=== PATIENT | female | born 1965 | race Two or more races ===

== ENCOUNTER 2016-10-15 03:22 | Inpatient (IN) | payer MEDICAID ==
[~2016-10-15] VITALS: Ht 170.2 cm; Wt 99.5 kg
[2016-10-15] MEDS ORDERED: ONDANSETRON HCL/PF 4 MG/2 ML VIAL IVP PRN (04:00)
[2016-10-15] MEDS ORDERED: MAGNESIUM HYDROXIDE 30 ML UDC PO PRN (04:00)
[2016-10-15] MEDS ORDERED: MAG HYDROX/AL HYDROX/SIMETH 30 ML UDC PO PRN (04:00)
[2016-10-15] MEDS ORDERED: ZOLPIDEM TARTRATE 5 MG TABLET PO PRN (04:00)
[2016-10-15] MEDS ORDERED: Z GUARD REMEDY 2 OZ OINT TP PRN (04:00)
--- NOTE | 2016-10-15 05:35 | NUR ---
MS/RN NOTES RECEIVED PT. DIRECT ADMISSION FROM [facility] VIA [facility]. PT. IS AWAKE, ALERT AND ORIENTED X3. BREATHING EVEN AND UNLABORED ON ROOM AIR. NO SOB OR RESPIRATORY DISTRESS NOTED AT THIS TIME. PT. COMPLAINING OF ABDOMINAL PAIN 10/13. ORIENTED PT. TO ROOM. PT. WITH RIGHT WRIST 22 GAUGE IV SALINE LOCK PRESENT, PATENT AND INTACT. BED IN LOWEST POSITION, CALL LIGHT WITHIN REACH, WILL CONTINUE TO MONITOR.
[2016-10-15 05:36] VITALS: BP 138/71
[2016-10-15] MEDS ORDERED: IV SET PRIMARY PUMP SET 1 EA INFUS.SET MC ONE (06:36)
[2016-10-15] MEDS ORDERED: IV NS 0.9% 1,000 ML ONE (06:36)
[2016-10-15] MEDS: IV NS 0.9% 1,000 ML IV PRN ×2 (06:49→20:57)
--- NOTE | 2016-10-15 07:00 | NUR ---
MS/RN NOTES PT. LYING IN BED RESTING. BREATHING EVEN AND UNLABORED ON ROOM AIR. NO SOB OR RESPIRATORY DISTRESS NOTED AT THIS TIME OR S/S OF PAIN NOTED AT THIS TIME. PT. WITH RIGHT WRIST 22 GAUGE PERIPHERAL IV PRESENT, PATENT AND INTACT ADMINISTERING TO PT. NS @ 100ML/HR. ALL PT. NEEDS MET. BED IN LOWEST POSITION, CALL LIGHT WITHIN REACH, WILL ENDORSE TO DAYSHIFT NURSE FOR CONTINUITY OF CARE.
[2016-10-15 07:15] LABS: BASOPHILS % (AUTO) 0.2 % (0.0-2.0); EOSINOPHILS % (AUTO) 0.3 % (0.0-6.0); HEMATOCRIT 41 % (33-45); HEMOGLOBIN 13.9 g/dL (11.5-14.8); LYMPHOCYTES # (AUTO) 1.7 /CMM (0.8-4.8); LYMPHOCYTES % (AUTO) 11.9 % (20.0-44.0); MEAN CORPUSCULAR HEMOGLOBIN 29 PG (26.0-33.0); MEAN CORPUSCULAR HGB CONC 34 g/dl (31.0-36.0); MEAN CORPUSCULAR VOLUME 86 fL (82-100); MONOCYTES # (AUTO) 0.6 /CMM (0.1-1.30); MONOCYTES % (AUTO) 4.1 % (2.0-12.0); NEUTROPHILS # (AUTO) 11.9 /CMM (1.8-8.9); NEUTROPHILS % (AUTO) 83.5 % (43.0-81.0); PLATELET COUNT (AUTO) 206 /CMM (150-450); RDW COEFFICIENT OF VARIATION 13.9 (11.5-15.0); WHITE BLOOD COUNT (AUTO) 14.3 K/uL (4.3-11.0)
[2016-10-15 07:44] LABS: ALBUMIN 3.5 g/dL (3.4-5.0); BILIRUBIN,TOTAL 0.3 mg/dL (0.2-1.0); CALCIUM, SERUM 8.9 mg/dL (8.5-10.1); CREATININE 0.6 mg/dL (0.6-1.3); MAGNESIUM 1.8 mg/dL (1.8-2.4); PHOSPHORUS 5.5 mg/dL (2.5-4.9); TOTAL PROTEIN, SERUM 7.9 g/dL (6.4-8.2)
[2016-10-15 08:00] VITALS: BP 134/84
--- NOTE | 2016-10-15 08:00 | NUR ---
MS RN RECEIVED ON BED, AWAKE,ALERT,ORIENTED X3,NOT IN ANY FORM OF DISTRESS, RESPIRATIONS EVEN AND UNLABORED,NO SOB NOTED. LUNGS ARE CLEAR, ABDOMEN SOFT,POSITIVE BOWEL SOUNDS, DENIES PAIN AT THIS TIME, WILL MONITOR PATIENT'S CONDITION.
[2016-10-15] MEDS: PANTOPRAZOLE 40 MG VIAL IV SCH (10:02)
[2016-10-15] MEDS: HYDROMORPHONE INJ 2 MG/ML DISP.SYRIN IV PRN ×2 (10:03→20:56)
--- NOTE | 2016-10-15 12:00 | NUR ---
MS WHYTE WAS SEEN BY DR. ARMANDO Galvez/ ORDERS MADE AND CARRIED OUT.
--- NOTE | 2016-10-15 16:00 | NUR ---
MS RN REGULARLY GETTING HER PAIN MEDS AT THIS TIME.ALL NEEDS ATTENDED.
[2016-10-15 16:54] VITALS: BP 134/73
--- NOTE | 2016-10-15 19:23 | NUR ---
MS RN ON BED, ALL NEEDS ATTENDED, NO DISTRESS NOTED.
[2016-10-15 20:00] VITALS: BP 155/91
--- NOTE | 2016-10-15 21:00 | NUR ---
Patient was crying States" the day nurse told me she would bring my pain medicine I told her she came in my room three times and didn't bring my pain like she said she would and she wouldn't come in to help me to restroom. " Reassured pt gave pt lmg of dilaudid ivp tolerated well reassessed in 30 minutes patient was asleep. Pt stated earlier pain is 9/10 and it hurts when she moves." Pt is monitored every hour and prn for safety, pain and other needs. No signs of respiratory distressed noted. Will continue to monitored.
[2016-10-16] MEDS: HYDROCODONE/APAP 5/325MG 1 EACH TABLET PO PRN ×2 (00:21→13:39)
[2016-10-16] MEDS: HYDROMORPHONE INJ 2 MG/ML DISP.SYRIN IV PRN ×3 (02:47→19:40)
--- NOTE | 2016-10-16 07:30 | NUR ---
PATIENT RECEIVED RESTING COMFORTABLY IN BED WITH EYES CLOSED. NO S/S OR C/O PAIN OR DISTRESS NOTED. SIDE RAILS UP X2, CALL LIGHT LEFT WITHIN REACH. WILL CONTINUE PLAN OF CARE.
[2016-10-16 08:00] VITALS: BP 96/54
[2016-10-16] MEDS: PANTOPRAZOLE 40 MG VIAL IV SCH (09:04)
[2016-10-16 09:23] LABS: BASOPHILS % (AUTO) 0.3 % (0.0-2.0); EOSINOPHILS # (AUTO) 0.1 /CMM (0.0-0.7); EOSINOPHILS % (AUTO) 0.5 % (0.0-6.0); HEMATOCRIT 38 % (33-45); HEMOGLOBIN 12.6 g/dL (11.5-14.8); LYMPHOCYTES # (AUTO) 1.6 /CMM (0.8-4.8); LYMPHOCYTES % (AUTO) 14.6 % (20.0-44.0); MEAN CORPUSCULAR HEMOGLOBIN 28 PG (26.0-33.0); MEAN CORPUSCULAR HGB CONC 33 g/dl (31.0-36.0); MEAN CORPUSCULAR VOLUME 86 fL (82-100); MONOCYTES # (AUTO) 0.7 /CMM (0.1-1.30); MONOCYTES % (AUTO) 6.8 % (2.0-12.0); NEUTROPHILS # (AUTO) 8.4 /CMM (1.8-8.9); NEUTROPHILS % (AUTO) 77.8 % (43.0-81.0); PLATELET COUNT (AUTO) 197 /CMM (150-450); RDW COEFFICIENT OF VARIATION 13.6 (11.5-15.0); RED BLOOD CELL COUNT(AUTO) 4.43 MIL/uL (4.0-5.2); WHITE BLOOD COUNT (AUTO) 10.8 K/uL (4.3-11.0)
[2016-10-16 09:43] LABS: ALBUMIN 2.8 g/dL (3.4-5.0); BILIRUBIN,TOTAL 0.5 mg/dL (0.2-1.0); CALCIUM, SERUM 8.7 mg/dL (8.5-10.1); CREATININE 0.5 mg/dL (0.6-1.3); POTASSIUM 3.8 mmol/L (3.5-5.1)
[2016-10-16] MEDS ORDERED: ANESTHESIA TRAY IN PYXIS 1 EA TRAY MC ONE (13:00)
[2016-10-16] MEDS ORDERED: POLYETHYLENE GLYCOL 3350 17 GM POWD.PACK PO ONE (13:30)
--- NOTE | 2016-10-16 13:30 | NUR ---
MED HELD MIRALAX. PT RESTING WITH EYES CLOSED AT THIS TIME.
[2016-10-16 16:00] VITALS: BP 141/49
--- NOTE | 2016-10-16 18:30 | NUR ---
CHANGE OF SHIFT REPORT PT RESTING COMFORTABLY IN BED. NO S/S OR C/O PAIN OR DISTRESS NOTED. SIDE RAILS UP X2, CALL LIGHT LEFT WITHIN REACH. PT KEPT CLEAN, DRY, AND COMFORTABLE. NO SIGNIFICANT CHANGES FROM PREVIOUS SHIFT. WILL GIVE REPORT TO ROSHAN WHYTE.
--- NOTE | 2016-10-16 19:30 | NUR ---
MS RN NOTE RECEIVED PATIENT FROM DAY SHIFT, PATIENT IS ALERT AND ORIENTEDX4, AMBULATORY, NO S/S OF RESPIRATORY DISTRESS AND COMPLAINS OF ABDOMINAL PAIN AT THIS TIME. IV ON RIGHT WRIST IS PATENT AND INTACT, HL. SRX2, BED IN LOW POSITION, WILL CONTINUE TO MONITOR PATIENT.
--- NOTE | 2016-10-16 19:40 | NUR ---
MS RN NOTE GOT A DISCHARGE ORDER FROM DR. ANTOINE MA. PATIENT MADE AWARE, SHE WANTS TO STAY UNTIL TOMORROW AM.
[2016-10-16 20:51] VITALS: BP 117/71
[2016-10-16] MEDS: ACETAMINOPHEN 325 MG TABLET PO PRN (23:26)
--- NOTE | 2016-10-16 23:30 | NUR ---
MS RN NOTE PATIENT VERBALIZED HER CONCERNS ABOUT DISCHARGE TOMORROW AND STATED THAT SHE WANTS TO RESOLVE HER CONSTIPATION(NO BM FOR 5 DAYS) BEFORE SHE LEAVES, OTHERWISE SHE WILL HAVE THE SAME PROBLEMS AGAIN. WILL RELAY TO DAY SHIFT TYLENOL 650MG PO GIVEN FOR HEADACHE.
[2016-10-17] MEDS: HYDROCODONE/APAP 5/325MG 1 EACH TABLET PO PRN (06:28)
--- NOTE | 2016-10-17 06:50 | NUR ---
MS RN NOTE PATIENT IS RESTING IN BED COMFORTABLY, NO S/S OF RESPIRATORY DISTRESS AND COMPLAINS OF HEADACHE, NORCO PO GIVEN. WILL ENDORSE TO DAY SHIFT FOR MINNIE.
[2016-10-17 08:00] VITALS: BP 113/75
--- NOTE | 2016-10-17 08:00 | NUR ---
RN OPENING NOTE RECEIVED PATIENT SLEEPING ON BED. NO ACUTE DISTRESS NOTED. IV SITE PATENT AND INTACT. BED IN LOWEST POSITION. CALL LIGHT WITHIN REACH. WILL CONTINUE TO MONITOR.
[2016-10-17] MEDS ORDERED: POLYETHYLENE GLYCOL 3350 17 GM POWD.PACK PO ONE (09:00)
[2016-10-17] MEDS: PANTOPRAZOLE 40 MG VIAL IV SCH (09:54)
[2016-10-17] MEDS: HYDROMORPHONE INJ 2 MG/ML DISP.SYRIN IV PRN ×2 (11:54→18:30)
--- NOTE | 2016-10-17 12:00 | NUR ---
PT IS FOR DISCHARGE HOME BUT PT REFUSED TO GO HOME SAYING SHE HASN'T MADE BM FOR 6 DAYS.PT TEACHING DONE ENCOURAGING FLUIDS,WARM PRUNE JUICE GIVEN IN AM AND ENCOURAGED TO WALK ALONG THE HALLWAY.WILL MONITOR.
[2016-10-17] MEDS: LACTULOSE 10 G/15 ML UDC (PYXIS) PO PRN (12:16)
[2016-10-17] MEDS ORDERED: MINERAL OIL 133 ML (PYXIS) 1 EA ENEMA RC ONE ×2 (13:00→18:30)
--- NOTE | 2016-10-17 15:14 | NUR ---
PATIENT COMPLAINS OF NAUSEA, ZOFRAN WAS GIVEN.
[2016-10-17 16:00] VITALS: BP 122/80
--- NOTE | 2016-10-17 18:55 | NUR ---
PT IS FOR DISCHARGE HOME BUT PT REFUSED TO GO HOME STATING THAT SHE HASN'T MADE BM FOR 6 DAYS.CHECKED FOR IMPACTION-WITH NEGATIVE RESULT.PT FINALLY AGREED TO HAVE FLEET OIL ENEMA WHICH WAS OFFERED SINCE AM BUT PT REFUSED.ADMINISTERED FLEET OIL ENEMA WHICH UNTIL NOW STILL HAS NEGATIVE RESULT.PT VOIDED IN THE TOILET WITH NO BM RESULT.PT TEACHING DONE ENCOURAGING FLUIDS,WARM PRUNE JUICE GIVEN IN AM AND ENCOURAGED TO WALK ALONG THE HALLWAY.
--- NOTE | 2016-10-17 19:00 | NUR ---
NOTIFIED DR MA OF PT REFUSING TO GO HOME.PT STATED THAT SHE WILL BE GOING BACK TO ER FOR THIS CONSTIPATION PROBLEM.PT STATED THAT SHE HAD COLONOSCOPY IN THE PAST AND POLYPS WERE REMOVED.PT INSISTS THAT SHE IS HIGHLY IMPACTED.NOTIFIED DR MA AND AWAITING FOR RESPONSE.ENDORSED TO NIGHT NURSE.
[2016-10-17 20:00] VITALS: BP 124/74
--- NOTE | 2016-10-17 20:30 | NUR ---
MS RN NOTES PT FOR D/C BUT PT STILL C/O ABD PAIN AND STILL HAS NO BM FOR 6 DAYS. SOAP SUDS ENEMA COMPLETED BUT PT STILL UNABLE TO HAVE BM. PT REQUESTED TO TALK TO THE DOCTOR. CALLED DR BAUER [employer]!. NOTIFIED MD RE PT'S CONDITION. WITH NEW ORDERS TO HOLD D/C FOR SASHA. WILL TALK TO PT LATER PER MD. ORDERS NOTED AND CARRIED OUT. WILL CONTINUE TO MONITOR.
--- NOTE | 2016-10-18 06:39 | NUR ---
MS RN NOTES AWAKE & RESPONSIVE. NOT IN ANY DISTRESS. NO SOB NOTED. DENIES ANY PAIN OR DISCOMFORT AT THIS TIME. WITH IV-HL PATENT & INTACT. MONITORED ACCORDINGLY. CALL LIGHT WITHIN REACH. BED IN LOWEST POSITION. SR UP X 2 FOR SAFETY. WILL ENDORSE TO NEXT SHIFT.
--- NOTE | 2016-10-18 07:59 | NUR ---
MS/RN OPENING NOTES PT. IS IN BED AWAKE, A&OX4. PT. SAID SHE HAS VERY SMALL BOWEL MOVEMENT, PEBBLE LIKE SIZE. PT. DENIES PAIN AT THIS TIME. NO SOB, BREATHING ON ROOM AIR UNLABORED, AND EVENLY. NO S/S OF ACUTE DISTRESS. PT. HAS IV ACCESS ON RIGHT WRIST HEP LOCK GAUGE 22. BED IS IN LOW POSITION, 2 SIDE RAILS UP, AND INSTRUCTED PT. TO USE CALL LIGHT FOR ASSISTANCE. WILL CONTINUE TO ASSESS AND MONITOR.
[2016-10-18 08:00] VITALS: BP_SYST 117; BP_SYST 95; BP_DIAS 68; BP_DIAS 73
[2016-10-18] MEDS: LACTULOSE 10 G/15 ML UDC (PYXIS) PO PRN (08:58)
--- NOTE | 2016-10-18 09:30 | NUR ---
MS/RN NOTES NOTIFIED YVES ARMAS NP. PT. C/O ABDOMINAL PAIN 11/12, NO BOWEL MOVEMENT FOR 6 DAYS AND YESTERDAY VERY SMALL BOWEL MOVEMENT. PT. HAS ORDER FOR DISCHARGE TODAY, AND Pranay ARMAS NP IS AWARE.
[2016-10-18] MEDS: PANTOPRAZOLE 40 MG VIAL IV SCH (09:57)
[2016-10-18] MEDS: ACETAMINOPHEN 325 MG TABLET PO PRN (10:02)
--- NOTE | 2016-10-18 11:25 | NUR ---
MS/RN NOTES NO IV ACCESS ON RIGHT HAND, PT. WAS SAID THAT IT WAS PULLED OUT BUT DOES NOT REMEMBER HOW. NO S/S OF BLEEDING ON RIGHT HAND. NEW LEFT HAND IV GAUGE 22 WAS STARTED WITHOUT COMPLICATIONS.
[2016-10-18] MEDS ORDERED: IV NS 0.9% 1,000 ML BAG IV PRN (12:30)
[2016-10-18] MEDS ORDERED: ACETAMINOPHEN W/ CODEINE#3 1 EA TABLET PO PRN (12:30)
[2016-10-18 12:58] LABS: BASOPHILS % (AUTO) 0.3 % (0.0-2.0); EOSINOPHILS # (AUTO) 0.3 /CMM (0.0-0.7); EOSINOPHILS % (AUTO) 4.1 % (0.0-6.0); HEMATOCRIT 42 % (33-45); HEMOGLOBIN 13.9 g/dL (11.5-14.8); LYMPHOCYTES # (AUTO) 1.9 /CMM (0.8-4.8); LYMPHOCYTES % (AUTO) 23.8 % (20.0-44.0); MEAN CORPUSCULAR HEMOGLOBIN 29 PG (26.0-33.0); MEAN CORPUSCULAR HGB CONC 33 g/dl (31.0-36.0); MEAN CORPUSCULAR VOLUME 86 fL (82-100); MONOCYTES # (AUTO) 0.5 /CMM (0.1-1.30); NEUTROPHILS # (AUTO) 5.1 /CMM (1.8-8.9); NEUTROPHILS % (AUTO) 64.8 % (43.0-81.0); PLATELET COUNT (AUTO) 238 /CMM (150-450); RDW COEFFICIENT OF VARIATION 13.5 (11.5-15.0); RED BLOOD CELL COUNT(AUTO) 4.83 MIL/uL (4.0-5.2); WHITE BLOOD COUNT (AUTO) 7.8 K/uL (4.3-11.0)
[2016-10-18] MEDS ORDERED: IV NS 0.9% 1,000 ML IV PRN (13:00)
[2016-10-18 13:06] LABS: CALCIUM, SERUM 9.3 mg/dL (8.5-10.1); CREATININE 0.6 mg/dL (0.6-1.3); POTASSIUM 4.4 mmol/L (3.5-5.1)
[2016-10-18 13:12] LABS: BILIRUBIN,TOTAL 0.3 mg/dL (0.2-1.0); MAGNESIUM 2.1 mg/dL (1.8-2.4); PHOSPHORUS 4.3 mg/dL (2.5-4.9)
[2016-10-18 16:00] VITALS: BP 112/77
--- NOTE | 2016-10-18 19:07 | NUR ---
MS/B2B ACCOUNT EXECUTIVE PT. WAS DISCHARGED HOME IN MEDICALLY STABLE CONDITION. WHEELCHAIR WAS OFFERED, BUT PT. REFUSED. PT. WAS GIVEN DISCHARGE INSTRUCTIONS, AND VERBALIZED UNDERSTANDING. DISCHARGE PAPER, AND BELONGINGS CHECKLIST WAS SIGNED. IV AND ID BAND WAS REMOVED WITHOUT COMPLICATIONS. ALL QUESTIONS ANSWERED. NO PICTURES TAKEN, SKIN WAS INTACT ON ASSESSMENT.
== END 2016-10-18 19:00 | disposition home or self-care (01) | DRG 254 ==
LOC: MED 05:36
PROVIDERS: ADMIT Family Medicine; ATTEND Family Medicine
PROC: 0DB68ZX Excision of Stomach, Via Natural or Artificial Opening Endoscopic, Diagnostic (ICD-10-PCS; principal; 2016-10-16 12:44)
DX: K58.9 Irritable bowel syndrome, unspecified (principal); E87.1 Hypo-osmolality and hyponatremia; E66.9 Obesity, unspecified; Z68.34 Body mass index [BMI] 34.0-34.9, adult; K59.00 Constipation, unspecified; D72.829 Elevated white blood cell count, unspecified
CPT/HCPCS: 36415; 80053-TC; 83690-TC; 83735-TC; 84100-TC; 85025-TC; 85652-TC; 87081-TC; 88305-TC; 88313-TC; 88342; C9113; J1170; J2405; J2704; J3490; J7030; Z7610